=== PATIENT | male | born 1995 | race Caucasian/White ===

== ENCOUNTER 2024-08-07 20:10 | Emergency (ER) | payer MEDICAID, OTHER ==
[2024-08-07 20:50] LABS: BASOPHILS ABSOLUTE AUTO 0.03 K/uL (0.00-0.10); BASOPHILS PERCENT AUTO 0.3 % (0.1-1.3); EOSINOPHILS ABSOLUTE AUTO 0.14 K/uL (0.00-0.40); EOSINOPHILS PERCENT AUTO 1.6 % (0.0-5.4); HEMATOCRIT 44.3 % (38.4-49.7); HEMOGLOBIN 15.8 g/dL (12.9-16.9); IMMATURE GRAN ABSOLUTE AUTO 0.03 K/uL (0.00-0.23); IMMATURE GRAN PERCENT AUTO 0.3 % (0.0-0.7); LYMPHOCYTES PERCENT AUTO 16.9 % (11.4-47.7); MEAN CORPUSCULAR HEMOGLOBIN 30.4 pg (31.6-35.5); MEAN CORPUSCULAR HGB CONC 35.7 g/dL (31.6-35.5); MEAN CORPUSCULAR VOLUME 85.2 fL (81.4-99.0); MONOCYTES ABSOLUTE AUTO 0.87 K/uL (0.20-0.90); MONOCYTES PERCENT AUTO 9.8 % (3.3-12.6); NEUTROPHILS ABSOLUTE AUTO 6.33 K/uL (1.0-7.6); NEUTROPHILS PERCENT AUTO 71.1 % (40.0-78.1); PLATELET COUNT,PLT 228 K/uL (130-375); WHITE BLOOD CELL COUNT,WBC 8.9 K/uL (3.2-11.0)
[2024-08-07] MEDS: fentaNYL 100 MCG/2 ML SDV IVPUSH ONE (20:52)
[2024-08-07] MEDS: Ondansetron 4 MG/2 ML SDV IVPUSH ONE (20:53)
[2024-08-07] MEDS: Sodium Chloride 0.9% 10 ML Syringe FLUSH PRN (20:53)
[2024-08-07] MEDS: Sodium Chloride 0.9% 1,000 ML IV STA (20:55)
[2024-08-07] MEDS: Sodium Chloride 0.9% 80 ML IV SCH (21:02)
[2024-08-07] MEDS: Iopamidol 612 MG/ML 100 ML Bottle IV SCH (21:02)
[2024-08-07 21:12] LABS: A/G RATIO 1.5 (1.2-2.2); ALANINE AMINOTRANSFERASE,ALT 21 U/L (12-78); ALBUMIN 4.5 g/dL (3.4-5.0); ALKALINE PHOSPHATASE 160 U/L (46-116); ANION GAP 13.8 mmol/L (5.0-14.0); ASPARTATE AMNIOTRANSFERASE,AST 15 U/L (15-37); BILIRUBIN TOTAL 0.9 mg/dL (0.2-1.0); BLOOD UREA NITROGEN,BUN 13 mg/dL (7-18); CALCIUM 9.9 mg/dL (8.5-10.1); CARBON DIOXIDE,CO2 27 mmol/L (21-32); CHLORIDE,CL 102 mmol/L (100-108); CREATININE 1.2 mg/dL (0.8-1.3); EST CRCL DRUG DOSING (CG) 83.65 mL/min; ESTIMATED GFR 83 mL/min (>60); GLUCOSE RANDOM 112 mg/dL (74-106); POTASSIUM,K 3.8 mmol/L (3.6-5.2); PROTEIN TOTAL,TP 7.5 g/dL (6.4-8.2); SODIUM,NA 139 mmol/L (140-148)
[2024-08-07] MEDS: HYDROmorphone 1 MG/ML Syringe IVPUSH ONE (21:17)
== END 2024-08-07 22:46 | disposition home or self-care (01) ==
LOC: JP.ED 20:10
DX: N13.2 Hydronephrosis with renal and ureteral calculous obstruction (principal); Z79.899 Other long term (current) drug therapy; Z86.16 Personal history of COVID-19
CPT/HCPCS: 36415; 74177; 80053; 83605; 83690; 85025; 96361; 96374; 96375; 99284; J1171; J2405; J3010; J3490; J7030; Q9967

== ENCOUNTER 2025-07-25 16:36 | Emergency (ER) | payer OTHER | END 2025-07-25 20:10 | disposition home or self-care (01) | LOC: JP.ED 16:36 | DX: R06.2 Wheezing (principal); R06.00 Dyspnea, unspecified; R05.8 Other specified cough | CPT/HCPCS: 36415; 71046; 85379; 94640; 99284; J7620; A9270-GY ==